=== PATIENT | male | born 2000 | race Caucasian/White ===

== ENCOUNTER 2021-11-17 20:56 | Emergency (ER) | payer OTHER, SELFPAY ==
[2021-11-17 20:57] VITALS: BP 159/91; PULSE 116; RESP 18; TEMP 37; O2SAT 98; BMI 21.1
--- NOTE | 2021-11-17 21:20 | ED.RN ---
PT REPORTS HE DOES NOT WANT TO FILE WORKMANS COMP, AFTER EDUCATION PROVIDED BY THIS RN. FROI NOT INITIATED.
--- NOTE | 2021-11-17 22:47 | EX.ED.UPPERE ---
HPI History of Present Illness Chief Complaint: Laceration Informant: patient Narrative Narrative: Patient received a laceration in the volar mid aspect of his left nondominant thumb today at around 3 PM. He was at work. This happened when he placed a fresh piece of sandpaper on a dual action louie and accidentally grabbed the spinning disc. He did clean it. He put alcohol in it. He then kept it wrapped up. He later decided he is overdue for tetanus shot and he wanted to have the wound looked at. It has not been bleeding. He has no numbness tingling or loss of function. Nothing really makes it better or worse. PFSH PFSH Allergy/AdvReac Type Severity Reaction Status Date / Time No Known Allergies Allergy Verified 11/17/21 20:56 Social History Smoking Status: Never smoker ROS ROS ED Integumentary Reports other Details: See history of present illness. Neurologic Neurologic: Denies paresthesias Hematologic/Lymphatic Hematologic/Lymphatic: Denies easy bleeding or easy bruising EXAM Physical Exam Const Vital Signs: 11/17/21 20:57 Temperature 98.6 F Temperature Source Temporal Pulse Rate 116 H Respiratory Rate 18 Blood Pressure 159/91 H Blood Pressure Mean 113 Pulse Ox 98 Oxygen Delivery Method Room Air Positive well nourished and well developed General Appearance ED: well developed and NAD HEENT atraumatic Resp normal respiratory effort Extremity Extremity Narrative: Patient does have a laceration overlying the proximal phalanx of the left thumb on the volar aspect. There is no bleeding. Although the total laceration is about 2 cm there is only about 1 cm that really opens up at all. It barely opens up much but it does go into the subcutaneous tissue. There is no bleeding. He has normal distal sensation. He has normal function of flexor tendons. Neuro Sensorium / Orientation: alert Skin Trauma: laceration MDM MDM MDM Narrative Medical decision making narrative: Initial plan was to clean and suture this. I explained that there is some increased risk because he has delayed presentation but he is probably within a reasonable time period. He also had initially cleaned it. Patient really would prefer not to suture it. I explained that it still will heal without suturing. But it will take longer. Regardless of how we treated it needs to be kept clean. He is allowed to soak it to clean it but should not keep it wet all the time. We will put some Steri-Strips over to help keep the 1 aspect fully closed. I explained that he can return for delayed primary closure after a few days if he changes his mind. I also worked to convince him to get the tetanus shot. He is overdue for this. Discharge Plan Triage Chief Complaint: Laceration ED Provider: Tien Soto Dx/Rx/DC Orders Clinical Impression: Laceration of left thumb Instructions: ED Laceration, Old: Not Sutured Primary Care Provider: Valentin Cline Referrals: Valentin Cline MD [Primary Care Provider] - 3-5 Days if not improving Disposition Disposition: Home, Self Care
[2021-11-17] MEDS: Diphth,Pertuss(Acell),Tet Vac 0.5 ML Vial IM (23:30)
[2021-11-17 23:33] VITALS: PULSE 67; RESP 16
== END 2021-11-17 23:34 | disposition home or self-care (01) ==
PROVIDERS: Emergency Provider Emergency Medicine; PCP Pediatrics; Visit Provider Emergency Medicine
DX: S61.012A Laceration without foreign body of left thumb without damage to nail, initial encounter (principal); Y99.0 Civilian activity done for income or pay; W26.8XXA Contact with other sharp object(s), not elsewhere classified, initial encounter; Z23 Encounter for immunization
CPT/HCPCS: 90471; 90715; 99282